=== PATIENT | male | born 1990 | race Caucasian/White ===

== ENCOUNTER 2017-07-06 07:20 | Day surgery (SDC) | payer MEDICAID ==
[2016-03-14 08:33] VITALS: BMI 22.1
[2017-07-06] MEDS ORDERED: Morphine 10 mg/5 ml Oral Soln PO PRN (08:48)
[2017-07-06] MEDS ORDERED: Dextrose 5%/0.45% NS 1,000 ML IV SCH (09:00)
[2017-07-06] MEDS ORDERED: Midazolam 2 MG/2 ML VIAL ONE (09:12)
[2017-07-06] MEDS ORDERED: Succinylcholine Chloride 20 mg/ml Syr (5 ml) IV ONE (09:13)
[2017-07-06] MEDS ORDERED: Propofol 10 mg/ml Inj (20 ML) ONE (09:13)
[2017-07-06] MEDS ORDERED: Lactated Ringer's 1,000 ML IV ONE (09:15)
[2017-07-06] MEDS ORDERED: ceFAZolin IV 1 gm in Dextrose 1 GM/50 ML BAG IVPB ONE (09:15)
[2017-07-06 11:11] VITALS: BP 117/63; PULSE 81; RESP 18; TEMP 97; O2SAT 100
--- NOTE | 2017-07-06 13:46 | OP ---
PROCEDURE DATE: 07/06/2017 PREOPERATIVE DIAGNOSIS: Chronic tonsillitis. POSTOPERATIVE DIAGNOSIS: Chronic tonsillitis. PROCEDURE: Tonsillectomy. SIGNIFICANT FINDING: Chronically infected tonsils. DESCRIPTION OF PROCEDURE: The patient was brought into the room, placed in the supine position. Anesthesia was initiated through an ET tube. The patient was draped in the usual manner. Mouth gag was placed in the oral cavity, opened and suspended on the Heck rehabilitation engineer the usual manner. Right tonsil was grabbed and pulled medially. Incision was made in the anterior tonsillar pillar using a plasma knife. Dissections were done between tonsil and tonsillar fossa using a plasma knife until the tonsil was removed. Bleeding was controlled using plasma knife. Next, the other tonsil was grabbed and pulled medially. Incision was made in the anterior tonsillar pillar using a plasma knife. Dissections were done between tonsil and tonsillar fossa using a plasma knife until the tonsil was removed. Bleeding was controlled using a plasma knife. Both the tonsillar beds were rubbed vigorously with a plasma knife wand. No bleeding was noted. Mouth gag was let down for 30 seconds. No bleeding was noted. Mouth gag was taken out and removed. The patient was taken off anesthesia and taken to the recovery room in stable manner. Manuel Orozco MD
== END 2017-07-06 12:27 | disposition home or self-care (01) ==
LOC: C.SDS 07:20
PROVIDERS: ATTEND Otolaryngology
DX: J35.01 Chronic tonsillitis (principal)
CPT/HCPCS: 42826; 88304; J0690; J1100; J2250; J2704; J3010; J7120